=== PATIENT | male | born 1975 | race Caucasian/White ===

== ENCOUNTER 2019-01-01 12:11 | Observation (INO) ==
[2019-01-01] MEDS ORDERED: Lorazepam 2 MG/ML VIAL ONE (13:14)
[2019-01-01] MEDS ORDERED: Ziprasidone 20 MG VIAL ONE (13:14)
[2019-01-01 14:42] LABS: #Monocytes 0.6 thou/uL (0.11-0.59); #Neutrophils 4.1 thou/uL (1.40-6.50); %Basophils 0.8 % (0.0-1.0); %Eosinophils 0.7 % (0.0-10.0); %Lymphocytes 16.9 % (21.0-51.0); %Monocytes 10.1 % (0.0-10.0); %Neutrophils 71.5 % (42.0-75.0); Hemoglobin 16.5 g/dL (14.0-18.0); Mean Corpuscular HGB CONC 34.2 g/dL (32.0-36.0); Mean Corpuscular Hemoglobin 30.1 pg (27.0-31.0); Mean Platelet Volume 9.9 fL (7.4-10.4); Platelet Count 147 thou/uL (130-400); RBC Distribution Width 11.8 % (11.5-14.5); White Blood Cell (WBC) Count 5.7 thou/uL (4.8-10.8)
[2019-01-01 15:04] LABS: ALT (SGPT) 36 U/L (8-55); AST (SGOT) 27 U/L (5-34); Alkaline Phosphatase 57 U/L (40-150); Anion Gap 27 mmol/L (10-20); BUN (Urea Nitrogen) 11 mg/dL (8.9-20.6); Bilirubin, Total 1.6 mg/dL (0.2-1.2); Calc. Creatinine Clearance 0 mL/min (70-130); Carbon Dioxide 16 mmol/L (22-29); Chloride 95 mmol/L (98-107); Estimated GFR-MDRD 71; Globulin 2.4 g/dL (2.4-3.5); Glucose 83 mg/dL (70-105); Protein, Total 6.4 g/dL (6.0-8.3); Sodium 135 mmol/L (136-145)
[2019-01-01 15:06] LABS: Potassium 2.6 mmol/L (3.5-5.1)
[2019-01-01] MEDS ORDERED: Potassium Chloride 20 MEQ/100 ML PREMIX BAG ONE (15:26)
[2019-01-01] MEDS ORDERED: Ibuprofen 200 MG TAB PO PRN (16:22)
[2019-01-01] MEDS ORDERED: Ondansetron ODT 4 MG TAB PO PRN (16:22)
[2019-01-01] MEDS ORDERED: Labetalol HCl 100 MG/20 ML VIAL SLOW IVP PRN (16:22)
[2019-01-01] MEDS ORDERED: Ondansetron PF 4 MG/2 ML Vial ONE (16:27)
[2019-01-01] MEDS ORDERED: Sodium Chloride 0.9% 1,000 ML IV SCH (16:30)
[2019-01-01] MEDS ORDERED: Ziprasidone 20 MG VIAL IM PRN (16:30)
[2019-01-01] MEDS ORDERED: Promethazine HCl 25 MG/ML VIAL ONE (16:34)
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
[2019-01-01 17:12] LABS: Magnesium 2.1 mg/dL (1.6-2.6); Phosphorus 3.1 mg/dL (2.3-4.7)
[2019-01-01] MEDS ORDERED: Lactated Ringer's 1,000 ML IV SCH (17:15)
[2019-01-01 17:42] LABS: Syphilis Antibody Nonreactive (Nonreactive); Syphilis Antibody Index 0.03 S/CO (<1.00 Non-Reactive)
[2019-01-01 17:53] LABS: INR-International Normal Ratio 1.4; PTT 30.2 SEC (22.9-36.1); Prothrombin Time 17.1 SEC (12.0-14.7)
[2019-01-01 18:21] LABS: Bicarbonate (HCO3v) 18.6 mmol/L (22.0-28.0); Calcium, Ionized 1.02 mmol/L (See Comments:); Chloride 103 mmol/L (98-107); Hemoglobin - Calc 14.4 g/dL (14.0-18.0); Potassium 3.2 mmol/L (3.5-5.1); Sodium 135 mmol/L (138-145); T. Carbon Dioxide 19.8 mmol/L (22.0-28.0); vO2 Saturation-calc 84.2 % (60.0-85.0)
[2019-01-01 22:32] VITALS: BMI 22.2
[2019-01-02] MEDS: Dextrose 5%-Lactated Ringers 1,000 ML IV SCH ×2 (04:54→04:55)
[2019-01-02 05:26] LABS: #Basophils 0.1 thou/uL (0.0-0.2); #Eosinphils 0.2 thou/uL (0.0-0.7); #Lymphocytes 3.1 thou/uL (1.20-3.40); #Neutrophils 2.8 thou/uL (1.40-6.50); %Basophils 1.2 % (0.0-1.0); %Eosinophils 2.8 % (0.0-10.0); %Monocytes 14.3 % (0.0-10.0); %Neutrophils 38.7 % (42.0-75.0); Hemoglobin 13.7 g/dL (14.0-18.0); Mean Corpuscular HGB CONC 33.6 g/dL (32.0-36.0); Mean Corpuscular Hemoglobin 29.7 pg (27.0-31.0); Mean Corpuscular Volume 88.3 fL (78.0-98.0); Mean Platelet Volume 9.6 fL (7.4-10.4); Platelet Count 146 thou/uL (130-400); RBC Distribution Width 11.7 % (11.5-14.5); Red Blood Cell (RBC) Count 4.61 mill/uL (4.70-6.10); White Blood Cell (WBC) Count 7.3 thou/uL (4.8-10.8)
[2019-01-02 05:50] LABS: ALT (SGPT) 28 U/L (8-55); AST (SGOT) 22 U/L (5-34); Albumin 3.3 g/dL (3.5-5.0); Alkaline Phosphatase 44 U/L (40-150); Anion Gap 16 mmol/L (10-20); BUN (Urea Nitrogen) 6 mg/dL (8.9-20.6); Bilirubin, Total 1.2 mg/dL (0.2-1.2); CK (CPK) 107 U/L (30-200); Calc. Creatinine Clearance 84 mL/min (70-130); Calcium 8.4 mg/dL (7.8-10.44); Carbon Dioxide 20 mmol/L (22-29); Chloride 113 mmol/L (98-107); Estimated GFR-MDRD 77; Globulin 1.8 g/dL (2.4-3.5); Glucose 62 mg/dL (70-105); Potassium 5.1 mmol/L (3.5-5.1); Protein, Total 5.1 g/dL (6.0-8.3); Sodium 144 mmol/L (136-145)
[2019-01-02 06:02] LABS: Thyroid Stimulating Hormone 0.8951 uIU/mL (0.35-4.94); Vitamin D, 25 Hydroxy 8.2 ng/ml (> 30.0)
--- NOTE | 2019-01-02 06:40 | PDOC.FM ---
- Subjective Subjective: Refusing vitals, blood draws currently. Restraints placed overnight. Denies palpitations, chest pain, shortness of breath. - Objective MAR Reviewed: Yes Vital Signs & Weight: Vital Signs (12 hours) Temp Pulse Resp BP Pulse Ox 01/02/19 04:00 91 20 129/64 100 01/01/19 22:04 100 01/01/19 21:54 97.9 F 85 14 124/73 100 Weight Weight 66.406 kg Result Diagrams: 01/02/19 04:59 01/02/19 04:59 Phys Exam - Physical Examination Constitutional: NAD HEENT: moist MMs Neck: supple Respiratory: no wheezing, clear to auscultation bilateral Cardiovascular: RRR, no significant murmur Gastrointestinal: soft, non-tender, positive bowel sounds Musculoskeletal: no edema Neurological: non-focal Psychiatric: normal affect Skin: normal turgor Dx/Plan (1) Hypokalemia Code(s): E87.6 - HYPOKALEMIA Status: Acute (2) Decreased oral intake Code(s): R63.8 - OTHER SYMPTOMS AND SIGNS CONCERNING FOOD AND FLUID INTAKE Status: Acute (3) Schizophrenia Code(s): F20.9 - SCHIZOPHRENIA, UNSPECIFIED Status: Chronic - Plan Plan: Mr Manning is a 43yo male with pmh of schizophrenia presenting with hypokalemia. Active Schizophrenia - Has not been taking meds - Continue Invega 9mg - Geodon 10mg q2h PRN - [facility] to eval today Decreased oral intake - BMI 19.8, 146.3lbs (150 1yr ago) - Alb 3.3, INR 1.4 - CK, Mg, Phos, TSH wnl - HIV pending - Now that pt medically stable from hypokalemia will have [facility] eval - Continue LR @125ml/hr - Related to active schizophrenia Incarcerated - [facility] nurse [phone] - per penitentiary nurse, patient was deemed competent by [facility], this was over-ruled by county court judge Hypokalemia, resolved - 2.6-> 5.1 Hyperbilirubinemia, resolved Code Status: FULL DVT ppx: SCDs Dispo: [facility] eval in AM PCP: penitentiary Addendum - Attending - Attending Attestation Date/Time: 01/02/19 1051 I personally evaluated the patient and discussed the management with Dr. Mejia. I agree with the History, Examination, Assessment and Plan documented above with any addition or exceptions noted below. Patient is medically clear for discharge. He denies concerns at this time. We have been told that since he is incarcerated that [facility] will not see in the hospital and therefore he will be discharged home with plans for the penitentiary to contact [facility] regarding his uncontrolled mental disorder. His presentation was due to 8 days of no solid food intake, which is not deadly or necessitating hospitalization. Electrolyte abnormalities should be anticipated but not life threatening.
[2019-01-02 11:34] VITALS: BP 132/85; TEMP 96.2
--- NOTE | 2019-01-02 11:37 | PDOC.EVN ---
Event Note - Event Note Event Note: Patient is stable to be discharged back to alf. He is medically cleared for discharge. Pt will wait for placement to [place] from alf.
--- NOTE | 2019-01-03 09:05 | DIS ---
DATE OF ADMISSION: 01/01/2019 DATE OF DISCHARGE: 01/02/2019 RESIDENT: Dorinda Mejia MD, PGY-1 ADMITTING ATTENDING: Joselo Gilbert MD DISCHARGE ATTENDING: Joselo Gilbert MD CONSULTS: None. PROCEDURES: None. PRIMARY DIAGNOSES: 1. Hypokalemia. 2. Schizophrenia. 3. Decreased oral intake. 4. Incarceration. 5. Hyperbilirubinemia, resolved. DISCHARGE MEDICATIONS: Invega 9 mg daily. HISTORY OF PRESENT ILLNESS/HOSPITAL COURSE: Mr. Manning is a 43-year-old male with past medical history of schizophrenia, who presented from [facility] for history of not eating for the past 8 days. He had been sent to [facility] on 12/26 and ate; therefore was sent back to [facility]. He has not eaten anything since that time. He has been on Invega 9 mg daily. In the ED, he was given Geodon, 1 L of normal saline, potassium and Ativan. He received a total of 100 mEq of potassium. Initial potassium was 2.6. Discharge potassium was 5.1. He was also noted to have a hyperbilirubinemia of 1.6. This resolved to 1.2 at discharge. His TSH was normal and Syphilis normal. DISPOSITION: Stable. DISCHARGE INSTRUCTIONS: 1. Location: Skilled Nursing. 2. Diet: Regular. 3. Activity: No restrictions. 4. Followup: Follow up with unit provider. Job ID: [id number]
--- NOTE | 2019-01-04 00:38 | DIS ---
DATE OF ADMISSION: 01/01/2019 DATE OF DISCHARGE: 01/02/2019 RESIDENT: Dorinda Mejia MD, PGY-1. ADMITTING ATTENDING: Joselo Gilbert MD DISCHARGE ATTENDING: Joselo Gilbert MD CONSULTS: None. PROCEDURES: None. PRIMARY DIAGNOSES: 1. Active schizophrenia. 2. Decreased oral intake. SECONDARY DIAGNOSES: 1. Incarceration. 2. Hypokalemia, resolved. 3. Hyperbilirubinemia, resolved. DISCHARGE MEDICATIONS: Invega 9 mg p.o. daily. DISCONTINUED MEDICATIONS: None. HISTORY OF PRESENT ILLNESS/HOSPITAL COURSE: Mr. Manning is a 43-year-old male, who presents with a past medical history of schizophrenia, presenting with acute psychosis and refusing to eat for the past several days. He was sent to [facility] on 12/26 and ate; therefore, he did not meet inpatient criteria. He was noted to have hypokalemia at admission 2.6, that was corrected with 100 mEq of potassium to 5.1 prior to discharge. He also had PT of 17.1 and INR 1.4. He was not anticoagulated, thus can be followed up as an outpatient as well as hyperbilirubinemia of 1.6. In the emergency room, he received Geodon, 1 L normal saline, potassium and Ativan. All other labs of malnutrition were within normal limits. RPR and HIV were negative. declined inpatient evaluation and patient was discharged back to the snf. DISPOSITION: Stable. DISCHARGE INSTRUCTIONS: 1. Location: [facility]. 2. Diet: Regular as patient tolerates. 3. Activity: No restrictions. 4. Followup: Follow up with unit medical care as needed. Job ID: [id number]
== END 2019-01-02 13:20 ==
LOC: ERS 12:11 → ERHOLD 16:06 → INTOOBSV 16:06 → 2NO 21:50
PROVIDERS: ADMIT Family Medicine; ATTEND Family Medicine
DX: F20.9 Schizophrenia, unspecified (principal); E87.6 Hypokalemia; E80.6 Other disorders of bilirubin metabolism; R63.8 Other symptoms and signs concerning food and fluid intake; Z79.899 Other long term (current) drug therapy; Z88.8 Allergy status to other drugs, medicaments and biological substances
CPT/HCPCS: 36415; 80053; 82306; 82330; 82550; 82803; 83735; 84100; 84443; 85025; 85610; 85730; 86780; 96361; 96365; 96366; 96368; 96372; G0378; J2060; J2405; J2550; J3480; J3486; J7050

== ENCOUNTER 2019-06-21 09:46 | Day surgery (SDC) | payer OTHER ==
[2019-06-21 11:11] LABS: ALT (SGPT) 11 U/L (8-55); AST (SGOT) 11 U/L (5-34); Albumin 4.1 g/dL (3.5-5.0); Alkaline Phosphatase 70 U/L (40-150); Anion Gap 11 mmol/L (10-20); BUN (Urea Nitrogen) 15 mg/dL (8.9-20.6); Calc. Creatinine Clearance 0 mL/min (70-130); Calcium 10.1 mg/dL (7.8-10.44); Carbon Dioxide 30 mmol/L (22-29); Chloride 105 mmol/L (98-107); Estimated GFR-MDRD Greater than 90; Globulin 2.4 g/dL (2.4-3.5); Glucose 91 mg/dL (70-105); Potassium 4.4 mmol/L (3.5-5.1); Protein, Total 6.5 g/dL (6.0-8.3); Sodium 142 mmol/L (136-145)
[2019-06-21 11:31] LABS: Free T4 (Free Thyroxine) 0.83 ng/dL (0.70-1.48); Thyroid Stimulating Hormone 1.6695 uIU/mL (0.35-4.94)
--- NOTE | 2019-06-21 13:09 | MRI ---
Brain MRI with and without contrast: 06/21/2019 COMPARISON: None HISTORY: Dizziness, ataxia TECHNIQUE: Multiplanar multisequence MR imaging of the brain obtained with and without contrast FINDINGS: The diffusion weighted imaging demonstrates no evidence for acute infarction. The axial gradient echo imaging demonstrates no evidence for intracranial hemorrhage. The imaged paranasal sinuses/mastoid air cells demonstrate no significant opacification. Arterial flow voids at the axial level of the skull base appear grossly unremarkable on the T2-weight ed imaging. The postcontrast imaging demonstrates no abnormal enhancement within the brain parenchyma. There is no midline shift or mass effect. No ventricular enlargement. IMPRESSION: Unremarkable contrast enhanced brain MRI.
== END 2019-06-21 14:28 ==
LOC: SDC/OP 09:46
PROVIDERS: ATTEND Psychiatry & Neurology Neurology
DX: H55.09 Other forms of nystagmus (principal); R27.0 Ataxia, unspecified; Z79.899 Other long term (current) drug therapy; Z88.8 Allergy status to other drugs, medicaments and biological substances
CPT/HCPCS: 36415; 70553; 80053; 82306; 84439; 84443; 84481

== ENCOUNTER 2019-07-22 12:38 | Observation (INO) | payer OTHER, SELFPAY ==
[2019-07-22 14:37] LABS: #Basophils 0.1 thou/uL (0.0-0.2); #Eosinphils 0.1 thou/uL (0.0-0.7); #Lymphocytes 1.4 thou/uL (1.20-3.40); #Monocytes 0.7 thou/uL (0.11-0.59); #Neutrophils 8.4 thou/uL (1.40-6.50); %Basophils 0.6 % (0.0-1.0); %Eosinophils 0.6 % (0.0-10.0); %Lymphocytes 12.9 % (21.0-51.0); %Monocytes 6.3 % (0.0-10.0); %Neutrophils 79.6 % (42.0-75.0); Hemoglobin 15.1 g/dL (14.0-18.0); Mean Corpuscular Hemoglobin 31.1 pg (27.0-31.0); Mean Corpuscular Volume 91.4 fL (78.0-98.0); Mean Platelet Volume 8.5 fL (7.4-10.4); Platelet Count 186 thou/uL (130-400); RBC Distribution Width 12.1 % (11.5-14.5); Red Blood Cell (RBC) Count 4.87 mill/uL (4.70-6.10); White Blood Cell (WBC) Count 10.5 thou/uL (4.8-10.8)
--- NOTE | 2019-07-22 15:07 | RAD ---
Portable chest 07/22/2019 COMPARISON: None HISTORY: Fall, nystagmus, ataxia FINDINGS: Lungs are clear. Heart and mediastinal contours are unremarkable. IMPRESSION: No acute findings.
[2019-07-22 15:09] LABS: Acetaminophen Less than 6.0 mcg/mL (10.0-30.0); Alcohol Less than 10 mg/dL (Less than 10); CK (CPK) 35 U/L (30-200); Magnesium 2.1 mg/dL (1.6-2.6); Salicylate Less than 8.0 mg/dL (15.0-30.0)
[2019-07-22 15:20] LABS: Amphetamine Not Detected (NotDetected); Barbiturates Screen Not Detected (NotDetected); Benzodiazepine Screen Not Detected (NotDetected); Cocaine Metabolite Screen Not Detected (NotDetected); Medtox Control Line Valid? VALID (VALID); Medtox Reader # READER 4; Methadone Not Detected (NotDetected); Methamphetamine Not Detected (NotDetected); Opiate Screen Not Detected (NotDetected); Oxycodone Screen Not Detected (NotDetected); Phencyclidine (PCP) Not Detected (NotDetected); THC/Cannabinoid Screen Not Detected (NotDetected); Tricyclic Screen Not Detected (NotDetected)
[2019-07-22 15:44] LABS: Bilirubin Negative (Negative); Blood, Urine Negative (Negative); Clarity Clear (Clear); Glucose, Urine (Dipstick) Normal (Negative); Leukocyte Negative Leu/uL (Negative); Nitrite Negative (Negative); Protein, Urine (Dipstick) 10 mg/dL (Neg-Trace); Urobilinogen Normal mg/dL (Less than 2)
[2019-07-22 16:33] LABS: ALT (SGPT) 13 U/L (8-55); AST (SGOT) 18 U/L (5-34); Albumin 4.8 g/dL (3.5-5.0); Alkaline Phosphatase 87 U/L (40-150); Anion Gap 20 mmol/L (10-20); BUN (Urea Nitrogen) 19 mg/dL (8.9-20.6); Bilirubin, Total 3.6 mg/dL (0.2-1.2); Calc. Creatinine Clearance 0 mL/min (70-130); Calcium 9.8 mg/dL (7.8-10.44); Carbon Dioxide 21 mmol/L (22-29); Chloride 98 mmol/L (98-107); Estimated GFR-MDRD 89; Globulin 2.8 g/dL (2.4-3.5); Lipase 9 U/L (8-78); Potassium 4.4 mmol/L (3.5-5.1); Protein, Total 7.6 g/dL (6.0-8.3); Sodium 135 mmol/L (136-145)
[2019-07-22 16:54] LABS: Glucose 58 mg/dL (70-105)
[2019-07-22] MEDS: Dextrose 5 % And 0.9 % NaCl 1,000 ML IV SCH (20:02)
[2019-07-22] MEDS ORDERED: Ondansetron PF 4 MG/2 ML Vial IVP PRN (20:39)
[2019-07-22] MEDS ORDERED: Ondansetron ODT 4 MG TAB SL PRN (20:39)
[2019-07-22] MEDS ORDERED: Acetaminophen 325 MG TAB PO PRN (20:39)
[2019-07-23] MEDS: Dextrose 5 % And 0.9 % NaCl 1,000 ML IV SCH ×2 (03:24→13:23)
--- NOTE | 2019-07-23 06:32 | ULT ---
RIGHT UPPER QUADRANT ULTRASOUND: INDICATIONS: History of right upper quadrant abdominal pain with elevated bilirubin. COMPARISON: None. TECHNIQUE: Almazan-scale and color Doppler with spectral Doppler images were obtained of the right upper quadrant o f the abdomen. FINDINGS: There is a coarse echotexture to the liver with increased echogenicity. No focal hepatic lesion is e vident. There is a small gallstone with gallbladder sludge seen within a mildly contracted gallbladder. The gallbladder wall measured 2.9 mm; however, this may be related to the under-distention. The common bile duct measured 1.9 mm. There is hepatopetal flow within the main portal vein. No sonographic Huerta sign is reported. The pancreas is obscured. The right kidney measures 10.3 x 4.8 x 5.1 cm. No focal renal lesion or hydronephrosis is evident. IMPRESSION: 1. Coarse echotexture of the liver with increased echogenicity, suspicious for underlying chronic li dru disease. 2. Cholelithiasis and gallbladder sludge without sonographic evidence of acute cholecystitis. 3. Some technical limitations to the examination, as above. POS: BH
[2019-07-23] MEDS ORDERED: Paliperidone Palmitate [Invega Sustenna] 156 MG IM SCH (09:00)
[2019-07-23] MEDS ORDERED: Senokot S 8.6-50 MG TAB PO PRN (11:12)
[2019-07-23 12:57] LABS: ALT (SGPT) 10 U/L (8-55); AST (SGOT) 13 U/L (5-34); Alkaline Phosphatase 71 U/L (40-150); Anion Gap 12 mmol/L (10-20); BUN (Urea Nitrogen) 8 mg/dL (8.9-20.6); Calc. Creatinine Clearance 115 mL/min (70-130); Calcium 9.2 mg/dL (7.8-10.44); Carbon Dioxide 22 mmol/L (22-29); Chloride 109 mmol/L (98-107); Estimated GFR-MDRD Greater than 90; Globulin 2.3 g/dL (2.4-3.5); Glucose 82 mg/dL (70-105); Protein, Total 6.3 g/dL (6.0-8.3); Sodium 139 mmol/L (136-145)
--- NOTE | 2019-07-23 13:07 | HP ---
PRIMARY CARE PHYSICIAN: Dr. Terry. The patient is currently a resident in the [facility] and has been since October. CHIEF COMPLAINT: Ataxia, falls. HISTORY OF PRESENT ILLNESS: Mr. Manning is a 43-year-old male who presented to the emergency yesterday. The patient is at custody of . The [facility] nurse was present with a complaint of a fall yesterday. The patient per the [facility] nurse who has been seeing him since December, he has been ataxic since that time. He was not ataxic prior to a short-stay in [place] for schizophrenia, but she states when he got back from [place] that he has been very similar to this, but it has gotten worse. He has seen Dr. Godfrey in the past, who had ordered some prednisone, but he was only able to take it for several days. Compounding the issue is his refusal to eat for several days at a time. Reports that "he can get all the nourishment in his body through God" and often refuses to eat nurse reports to me that the only thing he does eat is cheese sandwiches and fries and does drink water. PCP Dr. Terry has been trying to come up with organic reasons for the ataxia. An MRI was done on 06/21/2019 that was negative. Lab work here has been within normal limits. Since being brought here, the patient has eaten quite a bit including several granola bars, ice cream. The patient denies any abdominal pain. He did have a right upper quadrant abdominal ultrasound that was essentially negative. Does have some sludge noted in the gallbladder, but no findings of any cholecystitis. Liver enzymes are unremarkable here. The nurse reports that patient does have his own cell and is monitored 24/7, but she is worried with his ataxia and nystagmus that he potentially could fall causing the injury to his head or broken bones. He was admitted to the observation unit for further management. REVIEW OF SYSTEMS: Reports fall. Denies any back pain or injury. Denies any abdominal pain, any nausea. Does report some dizziness, gait disturbances. All other systems are reviewed and are negative unless mentioned in the HPI. PAST MEDICAL HISTORY: None. PAST SURGICAL HISTORY: None. PSYCHIATRIC HISTORY: Positive for schizophrenia. ALLERGIES: HALDOL. CURRENT MEDICATIONS: Gets Invega Sustenna 156 mg q. 28 days. He is due for another one on and then vitamin D he has 50,000 units p.o. q,. 1 week, which the nurse at the [facility] says that he has been taking pretty faithfully. PHYSICAL EXAMINATION: VITAL SIGNS: Blood pressure 125/93, pulse is 98, respirations 18, temp 97.7, O2 sats are 98% on room air. CONSTITUTIONAL: The patient appears nontoxic. He is alert and oriented to person, place and time. HEENT: Head is atraumatic and normocephalic. Eyes; eyelids are normal to inspection. There is nystagmus present, rotary. Pupils are equally round, and reactive to light. ENT: Mouth exam is normal. Mucous membranes are moist. NECK: Normal range of motion. Trachea is midline. RESPIRATORY: Chest, breath sounds are clear. No wheezing. CARDIOVASCULAR: Heart sounds are normal. Regular heart rate and rhythm. ABDOMEN: Nontender. Bowel sounds are heard. BACK: Normal range of motion. No tenderness. EXTREMITIES: Upper extremity normal range of motion, motor strength is normal. Sensation intact. Lower extremity, normal range of motion, motor strength is normal. Sensation intact. Pedal pulses normal. NEURO: Gait is abnormal. He has severe ataxia. He needs assistance with ambulation. DIAGNOSTIC DATA: EKG in the emergency room shows normal sinus rhythm, beats per minute 89. Radiology: Chest films are negative. ASSESSMENT: The patient with ongoing ataxia since December per the [facility] staff and [facility] nurse who I spoke to on the phone today. Has seen Dr. Godfrey in the past. We will consult Dr. Godfrey and get any further recommendations from him. Evidently Dr. Terry called yesterday and said that the patient's hemoglobin was dropping, although yesterday when it was checked here, it was 15.1, which is within normal range. He does have an elevated total bilirubin of 3.6, which we will recheck. We will ask dietary to maximize calories and get recommendations. I asked physical therapy or assessment. Continue the IV fluids that were ordered in the emergency room. Recheck lab values. The patient is not due for his home medication for his schizophrenia till tomorrow. Hopefully, we can discharge him by tomorrow and he can get this at the [facility], which the nurse said that they have for him. Deep venous thrombosis and gastrointestinal prophylaxis have been started. Hospital course dependent on clinical findings. Job ID: [id number]
[2019-07-23 13:30] LABS: #Eosinphils 0.2 thou/uL (0.0-0.7); #Lymphocytes 1.6 thou/uL (1.20-3.40); #Monocytes 0.5 thou/uL (0.11-0.59); #Neutrophils 3.7 thou/uL (1.40-6.50); %Basophils 0.7 % (0.0-1.0); %Eosinophils 2.7 % (0.0-10.0); %Lymphocytes 26.3 % (21.0-51.0); %Monocytes 8.7 % (0.0-10.0); %Neutrophils 61.6 % (42.0-75.0); Hemoglobin 13.8 g/dL (14.0-18.0); Mean Corpuscular HGB CONC 33.6 g/dL (32.0-36.0); Mean Corpuscular Hemoglobin 30.7 pg (27.0-31.0); Mean Corpuscular Volume 91.5 fL (78.0-98.0); Mean Platelet Volume 8.6 fL (7.4-10.4); Platelet Count 165 thou/uL (130-400); Red Blood Cell (RBC) Count 4.51 mill/uL (4.70-6.10)
[2019-07-23] MEDS: Famotidine 20 MG TAB PO SCH (21:20)
[2019-07-24 04:57] LABS: #Basophils 0.1 thou/uL (0.0-0.2); #Eosinphils 0.3 thou/uL (0.0-0.7); #Lymphocytes 2.7 thou/uL (1.20-3.40); #Monocytes 0.8 thou/uL (0.11-0.59); #Neutrophils 3.5 thou/uL (1.40-6.50); %Eosinophils 3.9 % (0.0-10.0); %Lymphocytes 36.8 % (21.0-51.0); %Monocytes 11.1 % (0.0-10.0); %Neutrophils 47.2 % (42.0-75.0); Mean Corpuscular HGB CONC 34.5 g/dL (32.0-36.0); Mean Corpuscular Hemoglobin 31.3 pg (27.0-31.0); Mean Corpuscular Volume 90.9 fL (78.0-98.0); Mean Platelet Volume 9.2 fL (7.4-10.4); Platelet Count 155 thou/uL (130-400); RBC Distribution Width 12.1 % (11.5-14.5); Red Blood Cell (RBC) Count 4.14 mill/uL (4.70-6.10); White Blood Cell (WBC) Count 7.4 thou/uL (4.8-10.8)
[2019-07-24 05:21] LABS: Anion Gap 14 mmol/L (10-20); BUN (Urea Nitrogen) 7 mg/dL (8.9-20.6); Calc. Creatinine Clearance 103 mL/min (70-130); Calcium 9.2 mg/dL (7.8-10.44); Carbon Dioxide 24 mmol/L (22-29); Chloride 107 mmol/L (98-107); Estimated GFR-MDRD Greater than 90; Glucose 91 mg/dL (70-105); Potassium 4.4 mmol/L (3.5-5.1); Sodium 141 mmol/L (136-145)
--- NOTE | 2019-07-24 07:43 | CON ---
DATE OF CONSULTATION: 07/23/2019 CONSULTING PHYSICIAN: Hospitalist Service. HISTORY OF PRESENT ILLNESS: Mr. Manning was recently seen in the office for evaluation of some increasing ataxia. He was noted on exam to have horizontally beating nystagmus as well as bilateral upgoing toes. He was referred for MRI of the brain. His MRI failed to reveal anatomic etiology for his neurologic findings. He has been readmitted at this time due to increasing unsteadiness. Reportedly, there was some ongoing anorexia, but he denies that this was the case. On exam, his affect is quite flat. He was cooperative and followed commands appropriately. He still has the horizontally beating nystagmus in down gaze. He has good [id number] movements. His waste chopper strength is equal. He has upgoing toes bilaterally. B12 level was in normal range. B1 and B6 are pending. He denies a family history of genetic ataxic syndromes. If his lab work is unremarkable, there may not be anything medically that can be done to address his neurologic condition. I would suspect that it is a degenerative process given the lack of other findings. We will follow up on the results and try to assist in his care time. Job ID: [id number]
[2019-07-24] MEDS: Famotidine 20 MG TAB PO SCH (08:37)
[2019-07-24] MEDS ORDERED: Enoxaparin Sodium 30 MG/0.3 ML SYRINGE SC SCH (09:00)
[2019-07-24 12:22] VITALS: BP 145/76; TEMP 98.1
--- NOTE | 2019-07-24 14:57 | DIS ---
DATE OF ADMISSION: 07/22/2019 DATE OF DISCHARGE: 07/24/2019 DISCHARGE DISPOSITION: [facility]. PRIMARY DISCHARGE DIAGNOSIS: Chronic ataxia with horizontal nystagmus with no acute structural abnormality in the brain. SECONDARY DISCHARGE DIAGNOSIS: Schizoaffective disorder. PROCEDURES DONE DURING HOSPITALIZATION: Chest x-ray done showed no acute findings. Right upper quadrant ultrasound done showed coarse echostructure of the liver with increased echogenicity suspicious for underlying chronic liver disease, cholelithiasis and gallbladder sludge without evidence of acute cholecystitis. He has had a prior MRI done on 06/21/2019, which was unremarkable. H and H 13 and 37, platelet count is 155. MCV is 90. Total bilirubin 1.0. AST, ALT, alkaline phosphatase within normal limits. TSH 1.59. Admitting total bilirubin was 3.6 with normal LFTs. B12 levels are 354. Pending labs; vitamin B1, B6 levels are pending. Urine drug screen is negative. Beta-hydroxybutyrate was 3.21. INPATIENT CONSULT: Dr. Godfrey for Neurology. DISCHARGE MEDICATIONS: The patient to continue, 1. Paliperidone palmitate 156 mg intramuscular once every 28 days. 2. Vitamin D3 50,000 units once weekly. ALLERGIES: ALLERGIC TO HALDOL. DISCHARGE PLAN: The patient to follow up with primary care physician in 1 week. He also needs to have outpatient psychiatrist evaluation to rule out medication side effects in view of nystagmus and gait abnormality. BRIEF COURSE DURING HOSPITALIZATION: The patient initially was sent from [facility] with history of fall. He has had issues with ataxia from December of this year. He was also found to have had horizontal nystagmus. The patient was at [facility] and was placed on Invega Sustenna medication from December onwards for schizophrenia. Since then, patient has had issues with gait abnormality and nystagmus. He has not had a formal psychiatrist evaluation after that. He has had complete neurologic evaluation including MRI brain, which have not shown any structural abnormalities. He has underlying schizophrenia and needs to follow up with outpatient psychiatrist. I have spoken to the prison facility nurse regarding the same and they are making every effort to obtain an outpatient consultation for the same. He is otherwise hemodynamically stable. Initial total bilirubin was elevated, but subsequent levels are within normal limits. He is tolerating oral solid diet prior to discharge. Please note, I have seen and examined the patient on the day of discharge. Job ID: [id number] MTDD
--- NOTE | 2019-07-27 15:36 | EKG ---
Test Reason : Blood Pressure : / mmHG Vent. Rate : 089 BPM Atrial Rate : 089 BPM P-R Int : 120 ms QRS Dur : 090 ms QT Int : 380 ms P-R-T Axes : 036 075 050 degrees QTc Int : 462 ms Normal sinus rhythm Normal ECG Confirmed by CECILIA TRINIDAD ([id number]), editor map STEFANIA WINCHESTER ([id number]) on 07/27/2019 3:36:06 PM Referred By: Confirmed By:CECILIA TRINIDAD
== END 2019-07-24 12:38 ==
LOC: ERS 12:38 → EEVIPCON 12:38 → 2SW 19:42
PROVIDERS: ADMIT Internal Medicine; ATTEND Internal Medicine
DX: R27.0 Ataxia, unspecified (principal); F25.9 Schizoaffective disorder, unspecified; R29.6 Repeated falls; Z88.8 Allergy status to other drugs, medicaments and biological substances; Z79.899 Other long term (current) drug therapy
CPT/HCPCS: 36415; 36416; 71045; 76705; 80048; 80053; 80306; 80307; 81003; 82010; 82533; 82550; 82607; 83605; 83690; 83735; 84207; 84425; 84443; 84484; 85025; 93005; 94760; 96360; 96361; G0378; J1650